=== PATIENT | female | born 1960 | race Caucasian/White ===

== ENCOUNTER 2016-10-25 18:17 | Emergency (ER) | payer OTHER ==
[~2016-10-25] VITALS: Ht 177.8 cm; Wt 70.9 kg
[~2016-10-25 18:17] MED LIST: LORT5TAB PO
[2016-10-25 18:33] VITALS: BP 184/97; PULSE 107; RESP 18; TEMP 98.4; O2SAT 98
[2016-10-25 18:40] VITALS: BP 184/97; PULSE 111; RESP 18; O2SAT 95
[2016-10-25] MEDS ORDERED: METO50TA PO ×2 (18:44→20:09)
[2016-10-25] MEDS ORDERED: LABETALOL HCL 100 MG/20 ML VIAL IV PUSH ONE (18:45)
[2016-10-25] MEDS ORDERED: SODIUM CHLORID 0.9% 500 ML INJ 500 ML IV ONE (18:45)
[2016-10-25] MEDS ORDERED: SODIUM CHLORIDE 0.9% FLUSH 5 ML FLUSH IVF PRN (18:45)
[2016-10-25] MEDS ORDERED: ASPIRIN 81 MG CHEW TAB PO ONE (18:45)
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
[2016-10-25 19:07] VITALS: BP 140/89; PULSE 94; RESP 24; O2SAT 95
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
[2016-10-25 19:15] LABS: BASOPHIL % 0.4 % (0.0-2.0); EOSINOPHIL # 0.1 TH/MM3 (0-0.4); EOSINOPHIL % 0.7 % (0.0-4.0); HEMATOCRIT 45.2 % (35.0-46.0); HEMO FLAGS DIFF FINAL; LYMPH % 7.9 % (9.0-44.0); LYMPHOCYTE # 0.6 TH/MM3 (1.0-4.8); MEAN CELL VOLUME 89.1 FL (80.0-100.0); MEAN CORPUSCULAR HEMOGLOBIN 31.5 PG (27.0-34.0); MEAN CORPUSCULAR HGB CONC 35.3 % (32.0-36.0); MONO % 4.1 % (0.0-8.0); NEUT % 86.9 % (16.0-70.0); PLATELET COUNT 241 TH/MM3 (150-450); RED BLOOD COUNT 5.07 MIL/MM3 (4.00-5.30); RED CELL DISTRIBUTION WIDTH 13.2 % (11.6-17.2)
[2016-10-25 19:18] VITALS: BP 175/98; PULSE 95; RESP 20; O2SAT 95
[2016-10-25 19:39] LABS: ANION GAP 12 MEQ/L (5-15); BICARBONATE 20.2 MEQ/L (21.0-32.0); BLOOD UREA NITROGEN 7 MG/DL (7-18); CHLORIDE 105 MEQ/L (98-107); GLOMERULAR FILTRATION RATE 86 ML/MIN (>89); MAGNESIUM 2.3 MG/DL (1.5-2.5); POTASSIUM 4.1 MEQ/L (3.5-5.1); SODIUM (NA) 137 MEQ/L (136-145)
[2016-10-25 19:44] LABS: CREATINE KINASE 110 U/L (26-192)
[2016-10-25 19:55] VITALS: BP 184/116; PULSE 97; RESP 20; O2SAT 97
--- NOTE | 2016-10-26 18:24 | EKG ---
Date Performed: 10/25/2016 Time Performed: 18:52:00 PTAGE: 56 years EKG: SINUS TACHYCARDIA POSSIBLE LEFT ATRIAL ENLARGEMENT POSSIBLE RIGHT VENTRICULAR CONDUCTION DE LAY ABNORMAL RHYTHM ECG PREVIOUS TRACING : 02/21/2011 11.36 Since previous tracing, no significant change noted DOCTOR: Luisa Horvath Interpretating Date/Time 10/26/2016 18:23:25
== END 2016-10-25 20:24 | disposition home or self-care (01) ==
LOC: NEPA 18:17
DX: F10.120 Alcohol abuse with intoxication, uncomplicated (principal); I10 Essential (primary) hypertension; R00.0 Tachycardia, unspecified; Z72.0 Tobacco use; F12.10 Cannabis abuse, uncomplicated
CPT/HCPCS: 71010; 80048; 80320; 82550; 82552; 83735; 84484; 85025; 93005; 96361; 96374; 99285; J7040